=== PATIENT | female | born 1945 | race Caucasian/White ===

== ENCOUNTER 2017-04-28 10:09 | Outpatient (CLI) | payer MEDICARE, OTHER ==
--- NOTE | 2017-04-29 17:35 | Mammography Report ---
DATE OF SERVICE: 04/28/2017 DIGITAL SCREENING MAMMOGRAM: 04/28/2017 CLINICAL INDICATION: A 71-year-old with history of late childbearing, for screening. COMPARISON: 05/2014, 04/2012, 06/2009. TECHNIQUE: Routine CC and MLO projections were obtained of the breasts. FINDINGS: The breasts demonstrate scattered fibroglandular densities bilaterally. Coarse and punctate, typically benign calcifications are present. No suspicious masses, clustered microcalcifications, or regions of architectural distortion are identified. IMPRESSION: BENIGN FINDINGS. RECOMMENDATION: ROUTINE ANNUAL SCREENING UNLESS OTHERWISE CLINICALLY INDICATED. BIRADS CATEGORY 2-BENIGN FINDINGS. STANDARD QUALIFYING STATEMENTS: 1. This examination was reviewed with the aid of Computer-Aided Detection (CAD). 2. A negative or benign imaging report should not delay biopsy if clinically suspicious findings are present. Consider surgical consultation if warranted. More than 5% of cancers are not identified by imaging. 3. Dense breasts may obscure an underlying neoplasm. TD: 04/29/2017 18:34
== END 2017-04-28 10:10 | disposition home or self-care (01) ==
LOC: DI.S 10:09
PROVIDERS: ATTEND Physician Assistant
DX: Z12.31 Encounter for screening mammogram for malignant neoplasm of breast (principal)
CPT/HCPCS: 77067

== ENCOUNTER 2019-08-06 19:00 | Outpatient (CLI) | payer OTHER, MEDICARE | END 2019-08-06 19:01 | disposition home or self-care (01) | LOC: COV 19:00 | PROVIDERS: ATTEND Family Medicine | DX: R50.9 Fever, unspecified (principal); R06.02 Shortness of breath; R06.2 Wheezing; M79.10 Myalgia, unspecified site; R53.83 Other fatigue | CPT/HCPCS: 81599 ==